=== PATIENT | female | born 1990 | race Caucasian/White ===

== ENCOUNTER 2016-09-19 22:59 | Emergency (ER) | payer SELFPAY ==
[~2016-09-19 22:59] MED LIST: AMOX1TAB10 PO; HYDR-906 PO; IBUP-1542 PO
== END 2016-09-19 23:30 | disposition left against medical advice (07) ==
LOC: E/R 22:59
DX: Z53.21 Procedure and treatment not carried out due to patient leaving prior to being seen by health care provider (principal)

== ENCOUNTER 2016-09-21 11:24 | Emergency (ER) | payer SELFPAY ==
[~2016-09-21] VITALS: Wt 70.0 kg
--- NOTE | 2016-09-21 13:10 | ERD ---
ER Documentation Chief Complaint Date/Time DATE: 09/21/16 TIME: 13:08 Chief Complaint right thigh dog bite 2 days ago here for wound check HPI This 25-year-old female resents for recheck on a dog bite sustained on the right buttock 2 days ago. She is taking antibiotics. She has no complaints of fevers, bleeding feels her pain is stable or improving. ROS All systems reviewed and are negative except as per history of present illness. Medications Home Meds Active Scripts Ibuprofen* (Motrin*) 600 Mg Tab, 600 MG PO Q6, #30 TAB Prov:JUANIS NATION PA-C 09/19/16 Hydrocodone/Acetaminophen (Michie 5-325 Tablet) 1 Each Tablet, 1 TAB PO Q6H Y for PAIN, #7 TAB Prov:JUANIS NATION PA-C 09/19/16 Amoxicillin/Potassium Clav (Amox-Clav 875-125 mg Tablet) 875-125 mg Tab, 1 TAB PO BID for 10 Days, #20 TAB Prov:JUANIS NATION PA-C 09/19/16 Allergies Allergies: Coded Allergies: No Known Allergy (Unverified , 09/21/16) PMhx/Soc Medical and Surgical Hx: pt denies Medical Hx, pt denies Surgical Hx Hx Alcohol Use: No Hx Substance Use: No Hx Tobacco Use: No Smoking Status: Never smoker Physical Exam Vitals Vital Signs Date Time Temp Pulse Resp B/P Pulse Ox O2 Delivery O2 Flow Rate FiO2 09/21/16 11:26 98.5 100 21 121/63 99 Physical Exam Const: [] Alert, not ill-appearing. Head: Atraumatic Eyes: Normal Conjunctiva ENT: Normal External Ears, Nose and Mouth. Neck: Full range of motion..~ No meningismus. Resp: Clear to auscultation bilaterally Cardio: Regular rate and rhythm, no murmurs Abd: Soft, non tender, non distended. Normal bowel sounds Skin: No petechiae or rashes. There is a large area of ecchymosis with few small puncture wounds. There is no significant induration, redness, streaking. There is no fluctuance bleeding or discharge Back: No midline or flank tenderness Ext: No cyanosis, or edema Neur: Awake and alert Psych: Normal Mood and Affect Procedures/MDM Patient presents with a satisfactorily healing dog bite on the right buttock. She will discharged home with instructions to continue antibiotics, recheck for any worsening symptoms or his primary care doctor. Departure Diagnosis: Primary Impression: Encounter for wound re-check Condition: Stable Patient Instructions: Wound Check, Lac F/U (No Infection) Additional Instructions: Wound appears to be healing well. Continue antibiotics. Recheck for fevers, worsening redness, new or worsening symptoms. VOLODYMYR DAWN MD Sep 21, 2016 13:09
== END 2016-09-21 13:16 | disposition home or self-care (01) ==
LOC: FTE 11:24
DX: Z48.01 Encounter for change or removal of surgical wound dressing (principal)
CPT/HCPCS: 99281